=== PATIENT | female | born 1935 | race Caucasian/White ===

== ENCOUNTER 2022-01-30 08:05 | Observation (INO) ==
[2022-01-30 08:34] LABS: Basophils % 0.2 % (0.0-0.8); Eosinophils # 0.1 10*3/uL (0.0-0.87); Eosinophils % 0.9 % (0.00-10.9); Hematocrit 32.5 VOL% (35.7-47.0); Hemoglobin 10.1 GM/DL (12.0-16.0); Immature Granulocytes % 0.5 %; Immature Granulocytes Absolute 0.03 #; Lymphocytes # 0.8 10*3/uL (1.4-4.0); Lymphocytes % 11.5 % (21.3-54.2); Mean Corpuscular HGB Conc 31.1 GM/DL (32-36); Mean Corpuscular Volume 83.5 FL (87-102); Mean Platelet Volume 10.3 FL (9.6-12.0); Monocytes # 0.5 10*3/uL (0.11-0.8); Monocytes % 7.2 % (1.7-12.7); Neutrophils % 79.7 % (38.7-73.9); Platelet Count 225 T/CUMM (130-400); Red Blood Count 3.89 MC/CUMM (3.8-5.5); Red Cell Distribution Width 16.9 % (9.3-17.3); White Blood Count 6.6 T/CUMM (4-12)
[2022-01-30 09:07] LABS: Albumin 3.5 G/DL (3.4-5.0); Bilirubin,Total 1.3 MG/DL (0.20-1.00); Calcium 10.1 MG/DL (8.5-10.1); Osmolality,Calculated 281.1 MOS/KG (273-304); Potassium 4.1 MMOL/L (3.5-5.1)
[2022-01-30 10:16] LABS: Glucose,Urine (UA) Negative (Negative); Ketones,Urine Negative (Negative); Nitrite,Urine Negative (Negative); Protein,Urine 30 mg/dL (Negative); Urine Appearance Slightly Cloudy (Clear); Urine Color Yellow (Yellow)
[2022-01-30 10:17] LABS: Bilirubin,Urine Negative (Negative); Blood, Urine Small mg/dL (Negative)
[2022-01-30 10:20] LABS: Mucus,Urine Occasional /LPF (Occasional); Squamous Epithelial Cell,Urine Occasional /HPF (0-10)
[2022-01-30] MEDS ORDERED: cefTRIAXone 1,000 MG in SODIUM CHLORIDE 0.9% 100 ML IV STA (11:38)
[2022-01-30 12:53] LABS: Hepatitis B Core IgM Quant 0.21 Index; Hepatitis B Surface Ag Quant < 0.10 Index; Hepatitis B Surface Ag Result Non-Reactive (NonReactive); Hepatitis C Virus Ab Result Non-Reactive (NonReactive)
[2022-01-30] MEDS ORDERED: ONDANSETRON 4 MG/2 ML VIAL IV PRN (13:12)
[2022-01-30] MEDS ORDERED: ACETAMINOPHEN 325 MG TABLET PO PRN (13:12)
[2022-01-30] MEDS ORDERED: GLUCAGON 1 MG VIAL IM PRN (13:12)
[2022-01-30] MEDS ORDERED: ALUMINUM/MAGNES/SIMETH MAX STR 30 ML UDCUP PO PRN (13:16)
[2022-01-30] MEDS ORDERED: DEXTROSE 10% 250 ML BAG IV PRN (13:25)
[2022-01-30] MEDS ORDERED: ENOXAPARIN 30 MG/0.3 ML SYRINGE SUBCUT SCH (14:00)
[2022-01-30] MEDS: INSULIN LISPRO 100 UNIT/ML SUBCUT SCH ×2 (17:33→21:12)
[2022-01-30] MEDS ORDERED: CITALOPRAM 20 MG TABLET PO SCH (21:00)
[2022-01-30] MEDS: PANTOPRAZOLE 40 MG TABLET PO SCH (21:10)
[2022-01-30] MEDS: LOSARTAN 50 MG TABLET PO SCH (21:18)
[2022-01-31 05:37] LABS: Basophils % 0.4 % (0.0-0.8); Eosinophils % 13.6 % (0.00-10.9); Hematocrit 30.5 VOL% (35.7-47.0); Hemoglobin 9.4 GM/DL (12.0-16.0); Immature Granulocytes % 0.3 %; Immature Granulocytes Absolute 0.02 #; Lymphocytes # 2.3 10*3/uL (1.4-4.0); Lymphocytes % 31.9 % (21.3-54.2); Mean Corpuscular HGB Conc 30.8 GM/DL (32-36); Mean Corpuscular Volume 83.6 FL (87-102); Mean Platelet Volume 10.6 FL (9.6-12.0); Monocytes # 0.6 10*3/uL (0.11-0.8); Neutrophils % 45.8 % (38.7-73.9); Platelet Count 199 T/CUMM (130-400); Red Blood Count 3.65 MC/CUMM (3.8-5.5); Red Cell Distribution Width 17.1 % (9.3-17.3); White Blood Count 7.1 T/CUMM (4-12)
[2022-01-31 06:19] LABS: Bilirubin,Total 0.8 MG/DL (0.20-1.00); Calcium 9.9 MG/DL (8.5-10.1); Osmolality,Calculated 279.7 MOS/KG (273-304); Potassium 3.9 MMOL/L (3.5-5.1); Risk Ratio 2.08; Thyroid Stimulating Hormone 2.52 uIU/ml (0.358-3.74); Total Protein 6.9 G/DL (6.4-8.2); VLDL Cholesterol 18.8 MG/DL
[2022-01-31 06:29] LABS: Anisocytosis 1+; Band Neutrophils 1 % (0-10); Eosinophils 13 % (0-10); Lymphocytes 34 % (20-55); Platelet Estimate Normal; Total Cells Counted 100
[2022-01-31 06:30] LABS: Ovalocytes Few; Poikilocytosis Slight
[2022-01-31] MEDS ORDERED: LEVOTHYROXINE 50 MCG TABLET PO SCH (06:30)
[2022-01-31] MEDS: INSULIN LISPRO 100 UNIT/ML SUBCUT SCH (07:48)
[2022-01-31] MEDS: PANTOPRAZOLE 40 MG TABLET PO SCH (08:15)
[2022-01-31] MEDS: LOSARTAN 50 MG TABLET PO SCH (08:16)
[2022-01-31 08:28] VITALS: BP 142/86
[2022-01-31] MEDS ORDERED: CLOPIDOGREL 75 MG TABLET PO SCH (09:00)
[2022-01-31] MEDS ORDERED: ASPIRIN 325 MG TABLET PO SCH (09:00)
[2022-01-31 09:01] LABS: % Iron Saturation 17.2 % (18-50); Ferritin 80.9 ng/mL (8-252)
[2022-01-31 09:15] LABS: Folate 22.26 NG/ML (5.38-24.0); Vitamin B12 > 2000 PG/ML (211-911)
[2022-01-31] MEDS ORDERED: cefTRIAXone 1,000 MG in SODIUM CHLORIDE 0.9% 100 ML IV SCH (12:00)
== END 2022-01-31 10:44 | disposition home or self-care (01) ==
LOC: N.ED 08:05 → N.EDINP 08:05 → N.2W 15:44
PROVIDERS: ADMIT Internal Medicine; ATTEND Internal Medicine